=== PATIENT | male | born 1980 | race Caucasian/White ===

== ENCOUNTER 2019-04-19 20:29 | Emergency (ER) | payer OTHER ==
[~2019-04-19] VITALS: Ht 172.7 cm; Wt 63.5 kg
[2019-04-19 22:35] LABS: ABSOLUTE NEUTROPHILS 15.1 thou/uL (1.4-8.2); BASOPHILS 0.4 % (0.0-2.0); EOSINOPHILS 0.1 % (0.0-3.0); HEMATOCRIT 49.5 % (42.0-52.0); HEMOGLOBIN 16.4 gm/dL (14.0-18.0); LYMPHOCYTES 5.3 % (24.0-44.0); MCH 28.2 pg (26.0-34.0); MCHC 33.2 g/dL (28.0-37.0); MONOCYTES 7.2 % (1.0-8.0); PLATELET COUNT 380 thou/uL (150-400); RBC 5.82 mil/uL (4.50-6.00); RDW 13.6 % (10.5-14.5); WBC 17.4 thou/uL (4.0-11.0)
[2019-04-19 22:48] LABS: CREATININE 1.3 mg/dL (0.7-1.3); POTASSIUM 3.8 mmol/L (3.5-5.1)
[2019-04-19 22:54] LABS: ALBUMIN 3.9 g/dL (3.4-5.0); TOTAL BILIRUBIN 0.7 mg/dL (<0.1-1.0)
[2019-04-19] MEDS ORDERED: MAGIC MOUTHWASH SW&SWALLOW (23:48)
[2019-04-19] MEDS ORDERED: NAPROSYN500 MG PO (23:48)
[2019-04-19] MEDS ORDERED: TRAMADOL 50 MG50 MG PO (23:48)
[2019-04-20 00:29] VITALS: BP 126/81
== END 2019-04-20 00:30 | disposition home or self-care (01) ==
LOC: ER 20:29
PROVIDERS: Emergency Medicine
DX: K12.30 Oral mucositis (ulcerative), unspecified (principal); R13.10 Dysphagia, unspecified; E86.0 Dehydration; F17.210 Nicotine dependence, cigarettes, uncomplicated